=== PATIENT | female | born 1980 | race Caucasian/White ===

== ENCOUNTER 2017-08-15 07:22 | Day surgery (SDC) | payer OTHER ==
[2017-08-15] MEDS ORDERED: Dextrose 5%-Lactated Ringers 1,000 ML IV SCH (08:00)
[2017-08-15] MEDS ORDERED: Glycopyrrolate 0.2 MG/ML 2 ML SDV IVPUSH ONE (08:00)
[2017-08-15] MEDS ORDERED: Propofol 200 MG/20 ML SDV ONE ×2 (09:19→10:11)
[2017-08-15] MEDS ORDERED: fentaNYL 100 MCG/2 ML SDV ONE (09:19)
[2017-08-15] MEDS ORDERED: Midazolam 1 MG/ML 2 ML SDV ONE (09:19)
[2017-08-15 11:55] VITALS: BP 119/71
--- NOTE | 2017-08-18 12:49 | OR ---
DATE OF PROCEDURE: 08/15/2017 PREOPERATIVE DIAGNOSIS: History of diarrhea/frequent loose bowel movements associated with abdominal pain. POSTOPERATIVE DIAGNOSES: History of diarrhea/frequent loose bowel movements associated with; 1. Very mild antral gastritis. 2. Possible mild duodenitis. 3. Normal colonoscopic examination. OPERATIVE PROCEDURES: 1. Esophagogastroduodenoscopy with;. a. Biopsies of antrum for CLOtest. b. Multiple biopsies of duodenum for histologic evaluation. 2. Flexible colonoscopy with;. a. Collection of stool for full microbiologic workup. b. Random colorectal biopsies to rule out microscopic colitis. ANESTHESIA: IV sedation. INDICATION FOR PROCEDURE: This is a 37-year-old presenting with diarrhea/frequent loose bowel movements associated with some abdominal bloating and discomfort. She is not presently on any antisecretory medications. A CT scan did show somewhat thickened distal duodenum and jejunum suggestive of duodenitis and enteritis at that level. The plan is to proceed with an upper and lower endoscopy with biopsies as indicated. Potential risks including bleeding and perforation were discussed, and the patient wishes to proceed. DETAILS OF PROCEDURE: The patient was taken to the operating room and placed in a left lateral decubitus position. IV sedation was administered, after which the upper GI endoscope was passed orally through the length of the esophagus and stomach with retroflexion view of the fundus, thereafter through the pyloric channel and into the proximal duodenum. Findings included normal hypopharynx, larynx, upper esophageal sphincter, esophageal body, and EG junction. No significant hiatal hernia was present in the stomach. No retained food or fluid was present. There was some very mild redness in the pre-pyloric area without erosions or ulcers. Within the duodenum, there was perhaps some slight edema present, but certainly not any major inflammatory process appeared to be present. The scope was passed to the level of the junction of the fourth portion of the duodenum and jejunum. At that point, multiple biopsies of the duodenum were obtained and sent for histologic evaluation. Following this, biopsies of the antrum were obtained and sent for CLOtest for H. pylori. Minimal bleeding from the biopsy sites was seen, and the procedure then concluded. Attention was then taken to the colonoscopy. Initial digital rectal exam was performed and was unremarkable. Colonoscope was then passed into the rectum with retroflexion revealing uncomplicated hemorrhoidal columns. The scope was then able to be passed to the level of cecum. The prep was fairly good. There was only small amount of liquid stool present. This stool was collected for a full microbiologic workup, which would include routine cultures, C. difficile enterotoxin assay, as well as ova and parasite cultures. There otherwise were no gross abnormalities seen in the colon or rectum. Multiple random biopsies were then obtained beginning in the cecum and extending through the length of the colon and into the rectum, and sent for histologic evaluation to rule out microscopic colitis. Minimal bleeding from the biopsy sites was seen, and the procedure then concluded. The plan will be to have the patient follow up with Jodi Chen PA-C, at [facility] in 7 to 10 days. Flaco Marino MD /[id number]
== END 2017-08-15 12:05 | disposition home or self-care (01) ==
LOC: JP.SDS 07:22
PROVIDERS: ATTEND Surgery
DX: K29.50 Unspecified chronic gastritis without bleeding (principal); F41.9 Anxiety disorder, unspecified; E03.9 Hypothyroidism, unspecified
CPT/HCPCS: 43239; 45380; 87046; 87081; 87177; 87209; 87899; J2250; J2704; J3010; J7042; 88305

== ENCOUNTER 2021-08-16 07:37 | Day surgery (SDC) | payer OTHER ==
[~2021-08-16 07:37] MED LIST: Bupivacaine 0.5%/EPINEPHrine 1:200,000 50 ML MDV ONE; Meropenem 500 MG SDV ONE
[2021-08-16] MEDS ORDERED: Acetaminophen 500 MG Tab PO ONE (07:45)
[2021-08-16] MEDS ORDERED: Succinylcholine 200 MG/10 ML MDV ONE (08:00)
[2021-08-16] MEDS ORDERED: Propofol 200 MG/20 ML SDV ONE (08:00)
[2021-08-16] MEDS ORDERED: Glycopyrrolate 0.2 MG/ML 5 ML MDV ONE (08:00)
[2021-08-16] MEDS ORDERED: Neostigmine Methylsulfate 1 MG/ML 5 ML Syringe ONE (08:00)
[2021-08-16] MEDS ORDERED: Ondansetron 4 MG/2 ML SDV ONE (08:00)
[2021-08-16] MEDS ORDERED: Rocuronium 50 MG/5 ML Vial ONE (08:00)
[2021-08-16] MEDS ORDERED: Dexamethasone 4 MG/ML SDV ONE (08:00)
[2021-08-16] MEDS ORDERED: fentaNYL 250 MCG/5 ML SDV ONE (08:08)
[2021-08-16] MEDS ORDERED: Dextrose 5%-Lactated Ringers 1,000 ML IV SCH (08:15)
[2021-08-16] MEDS ORDERED: cefOXitin 2 GM in Sodium Chloride 0.9% 50 ML IV ONE (09:00)
[2021-08-16] MEDS ORDERED: Hydrogen Peroxide 3% Top Soln 240 ML Bottle ONE (09:31)
[2021-08-16] MEDS ORDERED: fentaNYL 100 MCG/2 ML SDV ONE (09:54)
[2021-08-16 11:56] VITALS: BP 118/59; PULSE 75
--- NOTE | 2021-08-21 12:15 | OR ---
DATE OF PROCEDURE: 08/16/2021 SURGEON: Flaco Marino MD PREOPERATIVE DIAGNOSIS: Probable [id number]. 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 OPERATIVE PROCEDURE: Incision and drainage of partially drained perianal abscess followed by anal fistulotomy ([id number]). ANESTHESIA: General. INDICATIONS FOR PROCEDURE: This is a 41-year-old female presenting with several months history of drainage from the area left lateral and left to the anal canal. This was felt to be highly suspicious for a [id number]. Plan is to proceed with anorectal examination under anesthesia with either excision of the area of the gastric and isolated soft tissue infection versus anal fistulotomy with drainage of any remaining abscess that might be present. Potential risks including bleeding and infection, problems with fecal incontinence postoperatively were gone over, the possibility of needing a seton placed should a fistula be identified that traverses quite a bit in the way of musculature i.e. above the level of the internal sphincter were gone over and the patient wishes to proceed. DETAILS OF PROCEDURE: The patient was taken to the operating room. After general endotracheal anesthesia was induced, she was placed in a lithotomy position and a perianal prep was then performed. Initial digital rectal exam was performed. The patient was noted to have slight in the area in the left lateral aspect of the level of the dentate line. Through the fistula tract externally, some peroxide was then injected with the speculum in place in the anal canal. This confirmed fistula with bubbling of the peroxide coming out of the fistula tract at the level of the dentate line. A lacrimal duct probe was then placed externally through the fistula and then into the opening the anal canal and fistulotomy then created. Initially, there was a small amount of purulence at the skin level where there was partially drained abscess. The fistulotomy then continued along the tract where the anal canal was noted to traverse more or less between the internal and external sphincter quite superficial layer of musculature was below the fistula tracts, thus this was divided, and at that point the wound was anesthetized with 1% lidocaine mixed with Marcaine and packed open with Iodoform gauze. There were no evident complications. The patient was taken to the recovery room in satisfactory condition. Flaco Marino MD /[id number]
== END 2021-08-16 12:15 | disposition home or self-care (01) ==
LOC: JP.SDS 07:37
PROVIDERS: ATTEND Surgery
DX: K61.0 Anal abscess (principal); K60.3 Anal fistula; E66.01 Morbid (severe) obesity due to excess calories; I10 Essential (primary) hypertension; F41.9 Anxiety disorder, unspecified; E55.9 Vitamin D deficiency, unspecified; E53.8 Deficiency of other specified B group vitamins; Z98.890 Other specified postprocedural states; Z79.899 Other long term (current) drug therapy; Z68.43 Body mass index [BMI] 50.0-59.9, adult
CPT/HCPCS: 46275; 81025; 88304; A9270; J0330; J1100; J2405; J2704; J2710; J3010; J3490; J7121; J2185